=== PATIENT | male | born 1995 | race Hispanic/Latino ===

== ENCOUNTER 2022-03-26 10:28 | Emergency (ER) | payer OTHER ==
[~2022-03-26] VITALS: Ht 177.8 cm; Wt 94.5 kg
[2022-03-26] MEDS ORDERED: ACETAMINOPHEN 500 MG TAB PO ONE (15:35)
[2022-03-26] MEDS: LIDOCAINE 5% (LIDODERM) PATCH TD ONE ×2 (16:11→16:16)
[2022-03-26] MEDS ORDERED: LIDO5DIS41 TOP (17:11)
[2022-03-26 17:20] VITALS: BP 128/74
== END 2022-03-26 17:22 | disposition home or self-care (01) ==
LOC: M ED 10:28
DX: S09.90XA Unspecified injury of head, initial encounter (principal); S06.0X0A Concussion without loss of consciousness, initial encounter; S30.0XXA Contusion of lower back and pelvis, initial encounter; W19.XXXA Unspecified fall, initial encounter; Y92.89 Other specified places as the place of occurrence of the external cause; Y93.23 Activity, snow (alpine) (downhill) skiing, snowboarding, sledding, tobogganing and snow tubing; Z88.6 Allergy status to analgesic agent